=== PATIENT | male | born 1955 | race Caucasian/White ===

== ENCOUNTER 2017-03-19 07:54 | Outpatient (CLI) | payer OTHER | END 2017-03-19 07:55 | disposition home or self-care (01) | LOC: LAB.F 07:54 | PROVIDERS: ATTEND Internal Medicine | DX: R73.01 Impaired fasting glucose (principal) | CPT/HCPCS: 36415; 82947 ==

== ENCOUNTER 2018-03-16 15:51 | Outpatient (CLI) | payer OTHER ==
--- NOTE | 2018-03-17 10:06 | XRAY Report ---
Reason: PAIN IN RIGHT KNEE Procedure Date: 03/16/2018 Accession Number: [id number] / [id number] Procedure: XRS - Knee 3 View RT CPT Code: FULL RESULT: EXAM: RIGHT KNEE RADIOGRAPHY EXAM DATE: 03/16/2018 04:03 PM. CLINICAL HISTORY: PAIN IN RIGHT KNEE. COMPARISON: None. TECHNIQUE: 3 views. FINDINGS: Bones: Normal. No fractures or bone lesions. Joints: Normal. No effusion. No subluxations. Soft Tissues: Soft tissue calcifications present in the proximal central calf, likely related to old trauma. IMPRESSION: Unremarkable knee series. [facility]
== END 2018-03-16 15:52 | disposition home or self-care (01) ==
LOC: DI.S 15:51
PROVIDERS: ATTEND Internal Medicine
DX: M25.561 Pain in right knee (principal)

== ENCOUNTER 2018-03-24 07:33 | Outpatient (CLI) | payer OTHER ==
[2018-03-24 10:23] LABS: BASOPHILS # (AUTO) 0.1 10^3/uL (0.0-0.1); EOSINOPHILS # (AUTO) 0.5 10^3/uL (0.0-0.7); EOSINOPHILS % (AUTO) 9.1 %; HGB - HEMOGLOBIN 15.2 g/dL (14.0-18.0); LYMPHOCYTES # (AUTO) 1.6 10^3/uL (1.5-3.5); LYMPHOCYTES % (AUTO) 29.4 %; MEAN CORPUSCULAR HEMOGLOBIN 32.6 pg (27.0-31.0); MEAN CORPUSCULAR HGB CONC 34.4 g/dL (32.0-36.0); MEAN CORPUSCULAR VOLUME 94.7 fL (80.0-94.0); MEAN PLATELET VOLUME 8.5 fL (7.4-11.4); MONOCYTES # (AUTO) 0.5 10^3/uL (0.0-1.0); MONOCYTES % (AUTO) 8.3 %; NEUTROPHILS # (AUTO) 2.9 10^3/uL (1.5-6.6); NEUTROPHILS % (AUTO) 52.2 %; PLT - PLATELET COUNT 261 10^3/uL (130-450); RED BLOOD COUNT 4.67 10^6/uL (4.70-6.10); RED CELL DISTRIBUTION WIDTH 13.5 % (12.0-15.0); WHITE BLOOD COUNT 5.6 x10^3/uL (4.8-10.8)
[2018-03-24 10:49] LABS: CREATININE 0.7 mg/dL (0.6-1.2); URIC ACID 4.5 mg/dL (2.6-7.2)
[2018-03-25 13:17] LABS: HEPATITIS C ANTIBODY NON-REACTIVE (NON-REACTIVE)
== END 2018-03-24 07:34 | disposition home or self-care (01) ==
LOC: LAB.F 07:33
PROVIDERS: ATTEND Internal Medicine
DX: F32.9 Major depressive disorder, single episode, unspecified (principal); M10.00 Idiopathic gout, unspecified site; R73.01 Impaired fasting glucose; M25.569 Pain in unspecified knee; I83.90 Asymptomatic varicose veins of unspecified lower extremity
CPT/HCPCS: 36415; 80048; 84550; 85025; 86803

== ENCOUNTER 2018-04-21 07:46 | Outpatient (CLI) | payer OTHER ==
--- NOTE | 2018-04-21 11:04 | MRI Report ---
Reason: RIGHT KNEE PAIN EVAL FOR MEDIAL MENISCUS PAIN Procedure Date: 04/21/2018 Accession Number: [id number] / [id number] Procedure: MRI - Knee RT W/O CPT Code: FULL RESULT: EXAM: RIGHT KNEE MRI WITHOUT CONTRAST EXAM DATE: 04/21/2018 08:52 AM. CLINICAL HISTORY: Right knee pain. COMPARISON: None. TECHNIQUE: Multiplanar, multisequence T1-weighted and fluid-sensitive sequences of the knee without contrast. Other: None. FINDINGS: Bones: No fractures or subluxations. No marrow edema. No bone lesions. Articular Cartilage: There is mild thinning of the hyaline cartilage of the medial compartment. There is minimal surface erosion in the lateral and patellofemoral compartments. Medial Meniscus: There is a parrot-beak tear of the medial meniscus involving the posterior horn and body. The fragment is minimally displaced into the joint space of the medial compartment. Lateral Meniscus: The lateral meniscus is intact. Cruciate Ligaments: The anterior and posterior cruciate ligaments are intact. Collateral Ligaments: The medial collateral and lateral collateral ligamentous structures are intact. Tendons: The quadriceps, patellar, semimembranosus, and popliteus tendons are unremarkable. Musculature: No edema or fatty atrophy. Other: There is a small joint effusion. No popliteal cyst. No loose bodies. The medial and lateral retinacula are intact. The subcutaneous tissues and fat pads are unremarkable. IMPRESSION: 1. Parrot-beak tear of the medial meniscus with minimal displacement of the fragment. 2. Mild medial compartment osteoarthritis. 3. Small joint effusion. [facility] MUSCULOSKELETAL RADIOLOGY SECTION
== END 2018-04-21 07:47 | disposition home or self-care (01) ==
LOC: DI 07:46
PROVIDERS: ATTEND Student in an Organized Health Care Education/Training Program
DX: S83.241A Other tear of medial meniscus, current injury, right knee, initial encounter (principal); M17.11 Unilateral primary osteoarthritis, right knee; M25.461 Effusion, right knee

== ENCOUNTER 2019-03-10 08:57 | Outpatient (CLI) | payer OTHER ==
[2019-03-10 17:54] LABS: BUN - BLOOD UREA NITROGEN 11 mg/dL (6-20); CALCIUM 9.2 mg/dL (8.5-10.3); CARBON DIOXIDE - CO2 28 mmol/L (21-32); CHLORIDE 106 mmol/L (101-111); CHOL/HDL RATIO 3.2 (<5.0); CHOLESTEROL 180 mg/dL; CREATININE 0.9 mg/dL (0.6-1.2); GFR - MDRD 85 (>89); GLUCOSE 106 mg/dL (70-100); HDL CHOLESTEROL 57 mg/dL; LDL CHOLESTEROL,CALCULATED 112 mg/dL; SODIUM 140 mmol/L (135-145); URIC ACID 4.5 mg/dL (2.6-7.2); VLDL CHOLESTEROL 11 mg/dL
== END 2019-03-10 08:58 | disposition home or self-care (01) ==
LOC: LAB.S 08:57
PROVIDERS: ATTEND Internal Medicine
DX: M10.00 Idiopathic gout, unspecified site (principal); R73.01 Impaired fasting glucose; Z13.6 Encounter for screening for cardiovascular disorders
CPT/HCPCS: 36415; 80048; 80061; 83721; 84550

== ENCOUNTER 2019-07-14 14:20 | Outpatient (CLI) | payer MEDICARE ==
[2019-07-14 17:24] LABS: ALBUMIN 4.4 g/dL (3.2-5.5); BILIRUBIN,DIRECT 0.1 mg/dL (0.1-0.5); BILIRUBIN,TOTAL 0.9 mg/dL (0.2-1.0); TOTAL PROTEIN 6.6 g/dL (6.7-8.2)
== END 2019-07-14 14:21 | disposition home or self-care (01) ==
LOC: LAB.S 14:20
PROVIDERS: ATTEND Dermatology
DX: B35.1 Tinea unguium (principal); Z51.81 Encounter for therapeutic drug level monitoring; Z79.899 Other long term (current) drug therapy
CPT/HCPCS: 36415; 80076

== ENCOUNTER 2020-03-29 12:09 | Outpatient (CLI) | payer MEDICARE ==
[2020-03-29 15:45] LABS: ALBUMIN 4.1 g/dL (3.2-5.5); ALBUMIN/GLOBULIN RATIO 1.5 (1.0-2.2); BILIRUBIN,TOTAL 1.2 mg/dL (0.2-1.0); CALCIUM 9.5 mg/dL (8.5-10.3); CREATININE 0.8 mg/dL (0.6-1.2); TOTAL PROTEIN 6.9 g/dL (6.7-8.2)
== END 2020-03-29 12:10 | disposition home or self-care (01) ==
LOC: LAB.S 12:09
PROVIDERS: ATTEND Internal Medicine
DX: M54.5 Low back pain (principal); R73.01 Impaired fasting glucose; B35.1 Tinea unguium
CPT/HCPCS: 36415; 80053

== ENCOUNTER 2020-06-15 16:04 | Outpatient (CLI) | payer MEDICARE ==
[2020-06-15 20:03] LABS: BASOPHILS # (AUTO) 0.1 10^3/uL (0.0-0.1); BASOPHILS % (AUTO) 1.1 %; EOSINOPHILS # (AUTO) 0.3 10^3/uL (0.0-0.7); EOSINOPHILS % (AUTO) 4.6 %; HGB - HEMOGLOBIN 15.2 g/dL (14.0-18.0); LYMPHOCYTES # (AUTO) 1.7 10^3/uL (1.5-3.5); LYMPHOCYTES % (AUTO) 24.4 %; MEAN CORPUSCULAR HGB CONC 33.1 g/dL (32.0-36.0); MEAN CORPUSCULAR VOLUME 96.6 fL (80.0-94.0); MEAN PLATELET VOLUME 10.3 fL (7.4-11.4); MONOCYTES # (AUTO) 0.5 10^3/uL (0.0-1.0); MONOCYTES % (AUTO) 7.7 %; NEUTROPHILS # (AUTO) 4.4 10^3/uL (1.5-6.6); NEUTROPHILS % (AUTO) 62.1 %; PLT - PLATELET COUNT 286 10^3/uL (130-450); RED BLOOD COUNT 4.75 10^6/uL (4.70-6.10); RED CELL DISTRIBUTION WIDTH 12.9 % (12.0-15.0)
== END 2020-06-15 16:05 | disposition home or self-care (01) ==
LOC: LAB.S 16:04
PROVIDERS: ATTEND Internal Medicine
DX: M19.079 Primary osteoarthritis, unspecified ankle and foot (principal); B35.1 Tinea unguium
CPT/HCPCS: 36415; 84550; 85025

== ENCOUNTER 2021-04-03 15:15 | Outpatient (CLI) | payer MEDICARE ==
[2021-04-03 20:10] LABS: CHOL/HDL RATIO 2.9 (<5.0); CHOLESTEROL 169 mg/dL; HDL CHOLESTEROL 59 mg/dL; LDL CHOLESTEROL,CALCULATED 79 mg/dL; LDL/HDL RATIO 1.3 (<3.6); TRIGLYCERIDES 157 mg/dL; VLDL CHOLESTEROL 31 mg/dL
[2021-04-03 21:01] LABS: ESTIMATED AVERAGE GLUCOSE 114 mg/dL (70-100); HEMOGLOBIN A1c% 5.6 % (4.27-6.07)
== END 2021-04-03 15:16 | disposition home or self-care (01) ==
LOC: LAB.S 15:15
PROVIDERS: ATTEND Internal Medicine
DX: R73.01 Impaired fasting glucose (principal); Z13.220 Encounter for screening for lipoid disorders
CPT/HCPCS: 36415; 80061; 83036; 83721

== ENCOUNTER 2022-04-22 10:31 | Outpatient (CLI) | payer MEDICARE ==
[2022-04-22 21:20] LABS: ESTIMATED AVERAGE GLUCOSE 114 mg/dL (70-100); HEMOGLOBIN A1c% 5.6 % (4.27-6.07)
== END 2022-04-22 10:32 | disposition home or self-care (01) ==
LOC: LAB.S 10:31
PROVIDERS: ATTEND Internal Medicine
DX: R73.01 Impaired fasting glucose (principal)
CPT/HCPCS: 36415; 83036

== ENCOUNTER 2023-05-13 08:00 | Outpatient (CLI) | payer MEDICARE ==
--- NOTE | 2023-05-13 15:20 | Ultrasound Report ---
PROCEDURE: Aorta Screening INDICATIONS: EX SMOKER TECHNIQUE: Real time scanning was performed of the aorta and iliac arteries, with image documentatio n. COMPARISON: None. FINDINGS: Aorta: Proximal aortic diameter measures 2.7 cm. Mid-aorta measures 2.1 cm. Distal aortic diameter is 2.4 cm. Iliac arteries: Right common iliac artery measures 1.5 cm. Left common iliac artery measures 1.4 cm . IMPRESSION: Ectasia of the abdominal aorta. 5 year follow-up ultrasound recommended. Recommended intervals for follow-up imaging of ectatic aortas and abdominal aortic aneurysms, per ACR consensus guidelines: 2.5-2.9 cm: 5 years 3.0-3.4 cm: 3 years 3.5-3.9 cm: 2 years 4.0-4.4 cm: 1 year 4.5-4.9 cm: 6 months + endovascular referral 5.0-5.5 cm: 3-6 months + endovascular referral Reviewed by: Juan J Olosn MD on 05/13/2023 3:19 PM PST Approved by: Juan J Olson MD on 05/13/2023 3:19 PM PST Station ID: [id number]
== END 2023-05-13 08:01 | disposition home or self-care (01) ==
LOC: DI 08:00
PROVIDERS: ATTEND Internal Medicine
DX: Z13.6 Encounter for screening for cardiovascular disorders (principal); I77.811 Abdominal aortic ectasia; Z87.891 Personal history of nicotine dependence